=== PATIENT | female | born 1955 | race Caucasian/White ===

== ENCOUNTER 2017-01-05 12:10 | Emergency (ER) | payer BC ==
[~2017-01-05] VITALS: Ht 172.7 cm; Wt 78.1 kg
[2017-01-05 12:11] VITALS: Ht 172.7 cm; Wt 78.1 kg
--- OUTSIDE RECORDS SUMMARY | 2017-01-05 12:14 | XMS REPORT | Continuity of Care Document ---
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 Visit Date/Time Discharge Status Pt. Type Provider Facility Loc./Unit Complaint [id number] 01/21/2013 13:02:00 2012 19:35:00 DIS Outpatient Joleen Irene MD [facility] [place]
--- NOTE | 2017-01-05 12:40 | ERPDOC ---
Departure Disposition Decision Date: January 05, 2017 Disposition Decision Time: 15:16 Disposition: 01 DISCHARGED HOME, SELF-CARE Impression Impression Impression: Primary Impression: Chest pain Chest pain type: unspecified Qualified Codes: R07.9 - Chest pain, unspecified Severity: Moderate Condition: Stable Seen By: Mid-level only Referrals: DARIUSZ TOSCANO DO (Family) Patient Instructions: Chest Pain (ED) Problems/Meds/Labs Reviewed?: Yes Medications reviewed and manag: Yes Additional Instructions: Your labs today and chest xray are all normal. I do want you to go ahead and follow up with your primary care provider for reevaluation. If this persists you may need to have a cardiac stress test done. Return to Er for reevaluation if you should have return of chest pain, shortness of breath, or any new issues/ concerns. Follow up care ordered?: Yes Mental Status: Alert HPI - Chest Pain General Chief Complaint: Chest Pain Stated Complaint: CHEST PAIN Time Seen by Provider: 12:20 Source: patient Exam Limitations: no limitations HPI - Chest Pain Initial Comments She was sitting at work today and had sudden onset of intense heavy pain in the lower portion of her chest. She felt like this radiated up a little higher in her chest as well. She does not have any kind of cardiac history or family history of heart disease. Has never had pain like this before. She did not take any medications at the onset or for the duration of the pain. She got up and notified a coworker. She then started to feel faint and a little jittery. She has a history of syncope easily so this did not concern her as much. They did drive to [facility] but they do not have an ER and had offered to see about admitting her. She did decline this. Went to Immediate care but they do not do a work up for chest pain so they sent her here to ER. She states that the pain started to decrease after she showed up at [facility] and is totally gone now. Occurred At: home Onset/Timing: Rapid Duration: 1-3 hrs (at 1045-2 hours ago) Activities at Onset/Context: none Location: epigastric, see diagram 1 - area of pain Quality: other ("heavy pain") Associated Symptoms: syncope (felt presyncopal), DENIES: abdominal pain, back pain, diaphoresis, dizziness, edema, fast HR, fatigue, fever/chills, headache, heartburn, irregular HR, nausea/vomiting, rash, shortness of breath, slow HR, swelling/lump in chest, weakness Chest Pain Radiation: other (up further into her chest) Nitro Today/Relief: no nitro taken today Aspirin Treatment Today: unknown Prior Chest Pain/Cardiac Christen: no prior chest pain, no prior cardiac workup Hx of Similar Symptoms: No Allergies: Coded Allergies: Penicillins (Verified Allergy, Unknown, 01/05/17) Past History Patient Surgical History C Section Lumpectomy Past Medical History Metabolic: cancer Surgical History Reproductive/: Family History Family History: Negative Social History Smoking Status: Former smoker (quit in 1986) Substance Use Type: does not use Alcohol Intake: none Review of Systems Constitutional Constitutional: DENIES: chills, dizziness, fatigue, fever, weakness Eyes Vision: DENIES: blurring, double vision ENMT Ears: DENIES: drainage, pain Sinuses: DENIES: congestion, rhinorrhea Mouth/Throat: DENIES: scratchy throat, sore throat Cardiovascular Cardiac: chest pain, DENIES: dyspnea on exertion Rhythm/Rate: DENIES: irregular beat, palpitations Vascular: DENIES: pedal edema, unilateral swelling Pulmonary Respiratory: DENIES: cough, dyspnea, sputum, tachypnea GI Upper Abdomen: DENIES: nausea, pain, vomiting Lower Abdomen: DENIES: constipation, diarrhea, pain Integumentary Skin: DENIES: rash Neurological General: DENIES: headache, numbness, tingling, weakness Physical Exam General General Nourishment: well nourished, well developed, appears stated age, no acute distress, adult General Body Habitus: well groomed Vitals and Pain First Documented Vital Signs Date Time Temp Pulse Resp B/P Pulse Ox O2 Delivery O2 Flow Rate FiO2 01/05/17 12:11 98.1 66 16 155/72 97 Room Air Weight: Kilograms: 78.100 Height (feet): 5 Height (inches): 8.00 Triage Pain Scale: RN VS reviewed by Provider: Yes Normal Exams: ENMT: No facial trauma, nasal exudates, pharyngeal erythema, or exudates are noted Neck: Full range of motion, without adenopathy, JVD, bruits or thyromegaly Chest/Resp: Clear all locke, with good airflow, and symmetry bilaterally CV: Regular rate and rhythm, without murmur or gallop, Pulses 2+ all extremities, capillary refill, <2 seconds all ext., no pedal edema noted Abdomen: Bowel sounds positive, soft, non-tender, non-distended, no hepatosplenomegaly, masses or bruits noted Lymphatic: No lymphadenopathy, or lymphedema noted Integumentary: No rashes, hives, or bruising noted Neurologic: Patient is alert, and oriented, cranial nerves, motor/sensory/ cerebellar, exams w/o gross deficits, to observation Psychiatric: Patient exhibits, appropriate attention, emotion and affect Differential Diagnoses Considering: Acute IA, Anxiety/Panic, Angina, Costochondritis, Esophageal Spasm , GERD, Muscle Spasm Progress Results/Orders Orders Procedure Category Date Status Time Cbc W/Auto LAB 01/05/17 Complete Diff-Reflex Manual 12:33 Bmp - Basic Metabolic LAB 01/05/17 Complete Panel 12:33 Troponin I W LAB 01/05/17 Complete Hemolysis Index 12:33 EKG EKG 01/05/17 Taken 12:33 Chest 1 View RAD 01/05/17 Resulted 12:33 Iv Lock (Ed Only) EDM 01/05/17 Transmitted 12:33 Aspirin (Asa) PHA 01/05/17 Complete 12:45 Troponin I W LAB 01/05/17 Complete Hemolysis Index Lab Results Laboratory Tests Test 01/05/17 12:22 01/05/17 14:47 White Blood Count 4.3T/MM3 Red Blood Count 4.47M/MM3 Hemoglobin 13.8GM/DL Hematocrit 40.6% Mean Corpuscular Volume 90.8UM3 Mean Corpuscular Hemoglobin 30.9UUG Mean Corpuscular Hemoglobin Concent 34.0GM/DL RDW Standard Deviation 43.2FL Platelet Count 157T/MM3 Mean Platelet Volume 10.4UM3 Immature Granulocyte % (Auto) 0.2% Neutrophils (%) (Auto) 63.9% Lymphocytes (%) (Auto) 23.9% Monocytes (%) (Auto) 7.9% Eosinophils (%) (Auto) 3.9% Basophils (%) (Auto) 0.2% Absolute Immature Granulocyte (auto 0.01T/MM3 Absolute Neutrophils (auto) 2.8T/MM3 Absolute Lymphocytes (auto) 1.0T/MM3 Absolute Monocytes (auto) 0.3T/MM3 Absolute Eosinophils (auto) 0.2T/MM3 Absolute Basophils (auto) 0.0T/MM3 Turbidity < 20 Sodium Level 146MEQ/L Potassium Level 3.9MEQ/L Chloride Level 108MEQ/L Carbon Dioxide Level 26MEQ/L Anion Gap 12MEQ/L Blood Urea Nitrogen 13.0MG/DL Creatinine 0.7MG/DL Glomerular Filtration Rate Calc 85 BUN/Creatinine Ratio 19RATIO Glucose Level 99MG/DL Calculated Osmolality 281MOSM/KG Calcium Level 9.8MG/DL Icterus Index < 2 Troponin I < 0.012ng/ml < 0.012ng/ml Chemistry Specimen Hemolysis < 15 40 Medications Current ED Medications Aspirin (ASA) 324 mg O ONCE PO Last administered on 01/05/17t 12:40; Start 01/05 at 12:45; Stop 01/05/17 at 12:46; Status DC Progress Progress CBC, BMP, and troponin today are normal. Chest xray is clear. EKG shows NSR today. She has remained pain free while in ER. Will get repeat troponin and if negative then will send home. Her HEART score is only 1 today and this is very low risk. 1447- Repeat troponin today is negative. Will go ahead and let her go home today. She continues to be pain free in ER. Will have her follow up with her PCP or return to ER for reevaluation if return of symptoms. Xray Xray : Reason for Exam: Chest Pain Xray: CXR PA/Lat Interpretation: Normal MIREYA PATEL APRN January 05, 2017 12:40
[2017-01-05 12:42] LABS: BASOPHILS % (AUTO) 0.2 % (0-2); EOSINOPHILS # (AUTO) 0.2 T/MM3 (0-0.5); EOSINOPHILS % (AUTO) 3.9 % (0-4); HCT - HEMATOCRIT 40.6 % (36-46); HGB - HEMOGLOBIN 13.8 GM/DL (12-16); IMMATURE GRANULOCYTE # (AUTO) 0.01 T/MM3 (0.00-0.03); IMMATURE GRANULOCYTE % (AUTO) 0.2 % (0.0-0.5); LYMPHOCYTES % (AUTO) 23.9 % (23-45); MEAN CORPUSCULAR HGB 30.9 UUG (26-34); MEAN CORPUSCULAR VOLUME 90.8 UM3 (80-100); MEAN PLATELET VOLUME 10.4 UM3 (9.4-12.4); MONOCYTES # (AUTO) 0.3 T/MM3 (0-0.8); MONOCYTES % (AUTO) 7.9 % (0-9.0); NEUTROPHILS #(AUTO)-ABSOLUTE 2.8 T/MM3 (1.8-7.7); NEUTROPHILS % (AUTO) 63.9 % (33-66); RED BLOOD COUNT 4.47 M/MM3 (4.00-5.20); WBC - WHITE BLOOD COUNT 4.3 T/MM3 (4.5-11.0)
[2017-01-05] MEDS ORDERED: ASPIRIN 81 MG CHEWABLE TABLET PO ONE (12:45)
[2017-01-05 12:48] LABS: ANION GAP 12 MEQ/L (5-15); BUN/CREATININE RATIO 19 RATIO (6-26); CALCIUM 9.8 MG/DL (8.4-10.2); CHLORIDE 108 MEQ/L (98-107); CO2 - CARBON DIOXIDE 26 MEQ/L (22-30); CREATININE 0.7 MG/DL (0.7-1.2); GLOMERULAR FILTRATION RATE 85; GLUCOSE 99 MG/DL (65-110); POTASSIUM 3.9 MEQ/L (3.6-5); SODIUM 146 MEQ/L (134-144)
--- OUTSIDE RECORDS SUMMARY | 2017-01-05 12:54 | XMS REPORT | Continuity of Care Document ---
Author Author [facility] Organization [facility] Address Unknown Phone Unavailable Allergies Medications Problems [...] Status Pt. Type Provider Facility Loc./Unit Complaint [id number] 01/21/2013 13:02:00 2012 19:35:00 DIS Outpatient Joleen Irene MD [facility] [place]
--- NOTE | 2017-01-05 13:37 | DI ---
Indication: ITS.REASON: Centralized chest pain for two hours PROCEDURE: CHEST 1 VIEW: Encounter: Initial Comparison: May 13, 2014 FINDINGS: The lungs are clear. There is no abnormal airspace opacity, pleural effusion or pneumothorax identified. The heart size, pulmonary vasculature and mediastinum are within normal limits. No significant skeletal abnormality is seen. IMPRESSION: No acute cardiopulmonary abnormality. .
[2017-01-05] MEDS ORDERED: ANAS1TAB8 PO (13:39)
[2017-01-05] MEDS ORDERED: CHOL200026 PO (13:39)
[2017-01-05] MEDS ORDERED: ZINC50TA4 PO (13:39)
[2017-01-05] MEDS ORDERED: ASCO10007 (13:39)
[2017-01-05] MEDS ORDERED: RANI150T7 PO (13:39)
--- NOTE | 2017-01-05 14:11 | NUR ---
STATUS WARM BLANKET PROVIDED TO PT
--- NOTE | 2017-01-05 14:22 | NUR ---
STATUS PT IN ROOM ON CART DENEIS FURTHER NEEDS. DISCUSSED THE LAB TROPONIN BEING DRAWN. VOICES UNDERSTANDING AND DENIES FURTHER QUESTIONS
--- NOTE | 2017-01-05 14:26 | NUR ---
STATUS PT UP TO BATH ROOM WITH MINIMAL ASSIST.
--- NOTE | 2017-01-05 14:34 | NUR ---
STATUS TV REMOTE PROVIDED TO PT AND COFFEE AQUIRED FOR VISITOR IN PTS ROOM.
[2017-01-05 16:37] VITALS: BP 148/74; PULSE 61; RESP 21; TEMP 98.1; O2SAT 97
== END 2017-01-05 13:45 | disposition home or self-care (01) ==
LOC: ED 12:10
DX: R07.9 Chest pain, unspecified (principal); R55 Syncope and collapse
CPT/HCPCS: 36415; 80048; 84484; 85025; 93005

== ENCOUNTER 2017-01-25 05:59 | Day surgery (SDC) | payer BC ==
[2017-01-25] VITALS (17 sets, daily range): BP systolic 90–159; BP diastolic 58–82; PULSE 61–72; RESP 15–20; TEMP 97.6–98; O2SAT 97–100; Ht 170.2 cm; Wt 77.0 kg
[~2017-01-25] VITALS: Ht 170.2 cm; Wt 77.0 kg
[~2017-01-25 05:59] MED LIST: ANAS1TAB8 PO; ASCO10007; CHOL200026 PO; RANI150T7 PO; ZINC50TA4 PO
--- OUTSIDE RECORDS SUMMARY | 2017-01-25 06:03 | XMS REPORT | Continuity of Care Document ---
Author Author [facility] Organization [facility] Address Unknown Phone Unavailable Support Name Relationship Address Phone LAURA PATEL MD Caregiver [address] [place] [address] Unavailable DARIUSZ TOSCANO DO Caregiver [address] [address] Unavailable LIBBY COLON Next Of Kin [address] [place] [address] Insurance Providers Guarantor Mynor Colon Address [address] [place] [address] Email [email or web address] [facility] Policy Number [id number] Subscriber's Name Mynor Colon Relationship 18 Self Group Number [id number] Advance Directives Directive Response Recorded Date/Time Advanced Directives Type Living Will DPOA for Healthcare 01/05/17 12:11pm Chief Complaint and Reason for Visit Chief Complaint Chest Pain Reason for Visit Chest pain Problems Past Problems Medical Problem Onset Date Chest pain Unknown Medications Current Home Medications Medication Dose Units Route Directions Days Qty Instructions Start Date Anastrozole 1 Mg Tablet 1 Mg Oral Daily 90 01/05/17 Ascorbic Acid (Vitamin C) 1,000 Mg Tablet 01/05/17 Cholecalciferol (Vitamin D3) (Vitamin D-3) 2,000 Unit Capsule 2,000 Unit Oral Daily 01/05/17 Ranitidine Hcl 150 Mg Tablet 150 Mg Oral Daily 30 01/05/17 Zinc Gluconate (Zinc) 50 Mg Tablet 50 Mg Oral Daily 01/05/17 Social History Query Response Start Date Stop Date Smoking Status Never smoker Hospital Discharge Instructions No hospital discharge instructions. Plan of Care Discharge Date 01/05/17 1:45pm Disposition 01 DISCHARGED HOME, SELF-CARE Condition at Discharge Stable Instructions/Education Provided Chest Pain (ED) Prescriptions See Medication Section Referrals DARIUSZ TOSCANO DO Address: [address] [place] [phone] Additional Instructions/Education Your labs today and chest xray are all normal. I do want you to go ahead and follow up with your primary care provider for reevaluation. If this persists you may need to have a cardiac stress test done. Return to Er for reevaluation if you should have return of chest pain, shortness of breath, or any new issues/concerns. Care Plan and Goals Physician Care Plan Problem:Chest Pain Goal: Follow up with primary care provider Instructions: Take medications and follow care plan as discussed/written Functional Status No functional status results. Allergies, Adverse Reactions, Alerts Allergen Type Severity Reaction Status Last Updated Penicillin Allergy Unknown Active 01/05/17 Immunizations No immunization records. Vital Signs Acute Vital Signs Vital Response Date/Time Temperature (Fahrenheit) 98.1 deg F (96.8 - 99.1) 01/05/2017 4:37pm Temperature (Calculated Celsius) 36.50260 degrees C (36.0 - 37.3) 01/05/2017 4:37pm Pulse Rate (adult) 61 bpm (60 - 100) 01/05/2017 4:37pm Respiratory Rate 21 breaths/min (10 - 20) 01/05/2017 4:37pm O2 Sat by Pulse Oximetry 97 % (90 - 100) 01/05/2017 4:37pm Blood Pressure 148/74 mm Hg 01/05/2017 4:37pm Height (Feet) 5 feet 01/05/2017 12:11pm Height (Inches) 8.00 inches 01/05/2017 12:11pm Weight (Kilograms) 78.100 kg 01/05/2017 12:11pm Body Mass Index (BMI) 26.0 01/05/2017 12:11pm Results Laboratory Results Test Name Result Units Flags Reference Collection Date/Time Result Date/ Time Comments White Blood Count 4.3 T/MM3 L 4.5-11.0 01/05/2017 12:22pm 01/05/2017 12: 42pm Red Blood Count 4.47 M/MM3 4.00-5.20 01/05/2017 12:22pm 01/05/2017 12: 42pm Hemoglobin 13.8 GM/DL 12-16 01/05/2017 12:22pm 01/05/2017 12:42pm Hematocrit 40.6 % 36-46 01/05/2017 12:22pm 01/05/2017 12:42pm Mean Corpuscular Volume 90.8 UM3 80-100 01/05/2017 12:01/05/2017 12:42pm Mean Corpuscular Hemoglobin 30.9 UUG 26-34 01/05/2017 12:2016 12:42pm Mean Corpuscular Hemoglobin Concent 34.0 GM/DL 31-37 01/05/2017 12:01/05/2017 12:42pm RDW Standard Deviation 43.2 FL 36.9-50.2 01/05/2017 12:01/05/2017 12:42pm Platelet Count 157 T/MM3 130-400 01/05/2017 12:01/05/2017 12:42pm Mean Platelet Volume 10.4 UM3 9.4-12.4 01/05/2017 12:01/05/2017 12 :42pm Neutrophils (%) (Auto) 63.9 % 33-66 01/05/2017 12:01/05/2017 12: 42pm Lymphocytes (%) (Auto) 23.9 % 23-45 01/05/2017 12:01/05/2017 12: 42pm Monocytes (%) (Auto) 7.9 % 0-9.0 01/05/2017 12:01/05/2017 12:42pm Eosinophils (%) (Auto) 3.9 % 0-4 01/05/2017 12:01/05/2017 12:42pm Basophils (%) (Auto) 0.2 % 0-2 01/05/2017 12:01/05/2017 12:42pm Immature Granulocyte % (Auto) 0.2 % 0.0-0.5 01/05/2017 12:2016 12:42pm Absolute Neutrophils (auto) 2.8 T/MM3 1.8-7.7 01/05/2017 12:2016 12:42pm Absolute Lymphocytes (auto) 1.0 T/MM3 1-4.8 01/05/2017 12:2016 12:42pm Absolute Monocytes (auto) 0.3 T/MM3 0-0.8 01/05/2017 12:2016 12:42pm Absolute Eosinophils (auto) 0.2 T/MM3 0-0.5 01/05/2017 12:2016 12:42pm Absolute Basophils (auto) 0.0 T/MM3 0-0.2 01/05/2017 12:pm 2016 12:42pm Absolute Immature Granulocyte (auto 0.01 T/MM3 0.00-0.03 01/05/2017 12: 01/05/2017 12:42pm Icterus Index < 2 0-7 01/05/2017 12:01/05/2017 12:48pm Chemistry Specimen Hemolysis 40 H 0-25 01/05/2017 2:47pm 01/05/2017 3: 12pm 26-70: Specimen Exhibited Slight Hemolysis - can falsely elevate K (Potassium) and Urine Protein. Turbidity < 20 0-20 01/05/2017 12:pm 01/05/2017 12:48pm Sodium Level 146 MEQ/L H 134-144 01/05/2017 12:22pm 01/05/2017 12:48pm Potassium Level 3.9 MEQ/L 3.6-5 01/05/2017 12:01/05/2017 12:48pm Chloride Level 108 MEQ/L H 98-107 01/05/2017 12:pm 01/05/2017 12:48pm Carbon Dioxide Level 26 MEQ/L 22-30 01/05/2017 12:01/05/2017 12: 48pm Anion Gap 12 MEQ/L 5-15 01/05/2017 12:pm 01/05/2017 12:48pm Blood Urea Nitrogen 13.0 MG/DL 7-17 01/05/2017 12:01/05/2017 12: 48pm Creatinine 0.7 MG/DL 0.7-1.2 01/05/2017 12:01/05/2017 12:48pm BUN/Creatinine Ratio 19 RATIO 6-26 01/05/2017 12:01/05/2017 12: 48pm Glomerular Filtration Rate Calc 85 01/05/2017 12:01/05/2017 12 :48pm Glucose Level 99 MG/DL 65-110 01/05/2017 12:pm 01/05/2017 12:48pm Calculated Osmolality 281 MOSM/KG H 261-280 01/05/2017 12:2016 12:48pm Calcium Level 9.8 MG/DL 8.4-10.2 01/05/2017 12:22pm 01/05/2017 12:48pm Troponin I < 0.012 ng/ml 0-0.12 01/05/2017 2:47pm 01/05/2017 3:12pm Troponin values with a difference of 55% increase from orginal troponin value represent a true biological DELTA value. (%increase Calc=Orginal Troponin value, divided by subsequent Troponin value, multiplied by 100) Name: MYNOR COLON Unit #: [id number] : 1955 Sex: F Admit Date: Loc / Svc: ED Discharge Date: DIAGNOSTIC IMAGING REPORT [id number]: ITS.REASON: Centralized chest pain for two hours PROCEDURE: CHEST 1 VIEW: Encounter: Initial Comparison: May 13, 2014 FINDINGS: The lungs are clear. There is no abnormal airspace opacity, pleural effusion or pneumothorax identified. The heart size, pulmonary vasculature and mediastinum are within normal limits. No significant skeletal abnormality is seen. IMPRESSION: No acute cardiopulmonary abnormality. . Procedures No known history of procedures. Encounters Encounter Location Arrival/Admit Date Discharge/Depart Date Attending Provider Departed Emergency Room [facility] 01/05/17 12:10pm 01/05/17 1: 45pm LAURA PATEL MD Recent Diagnosis
--- OUTSIDE RECORDS SUMMARY | 2017-01-25 06:03 | XMS REPORT | Continuity of Care Document ---
Author Author [facility] Organization [facility] Address Unknown Phone Unavailable Allergies Medications Problems [...] Status Pt. Type Provider Facility Loc./Unit Complaint [id number] 01/21/2013 13:02:00 2012 19:35:00 DIS Outpatient Joleen Irene MD [facility] [place]
[2017-01-25] MEDS ORDERED: MIDAZOLAM 5mg/5ml INJECTION ONE ×2 (06:39→07:24)
[2017-01-25] MEDS ORDERED: FENTANYL 100mcg/2ml INJECTION ONE (06:39)
[2017-01-25] MEDS ORDERED: SALINE FLUSH 10ml SYRINGE ONE (06:40)
[2017-01-25] MEDS ORDERED: LIDOCAINE 1% (10mg/ml) 2ml SDV INJ ONE (07:00)
[2017-01-25] MEDS ORDERED: LR 1,000 ML IV SCH (07:00)
[2017-01-25] MEDS ORDERED: FENTANYL 100mcg/2ml INJECTION IV PRN (07:09)
[2017-01-25] MEDS ORDERED: MIDAZOLAM 5mg/5ml INJECTION IV PRN (07:09)
[2017-01-25] MEDS ORDERED: DiphenhydrAMINE 50 MG/ML INJECTION ONE (07:38)
[2017-01-25] MEDS ORDERED: DiphenhydrAMINE 50 MG/ML INJECTION IV ONE (07:39)
[2017-01-25] MEDS ORDERED: MIDAZOLAM 2mg/2ml INJECTION ONE (07:40)
--- NOTE | 2017-01-25 13:50 | OPNOTEF ---
DATE OF OPERATION 01/25/2017 INDICATION Colorectal cancer screening. OPERATION Colonoscopy SURGEON Cirilo Coombs D.O. ASA CLASSIFICATION I Consent signed and on the chart. Routine monitoring with ECG, continuous oximetry and noninvasive blood pressure was performed throughout the procedure and found to be within normal limits. IV sedation was performed with 10 mg of Versed and 100 mcg of Fentanyl. She was also given 50 mg of Benadryl. Prior to the procedure, the patient was brought to the endoscopy lab where a brief review of her medical history and physical exam was performed. The procedure was described to her and she was agreeable to continue. All questions were answered. DESCRIPTION OF OPERATION She was given IV sedation and placed in the left lateral decubitus position. A digital rectal exam was normal. The colonoscope was introduced through the anal verge and advanced to the cecum. Upon reaching the cecum, careful inspection of mucosa was performed. From the cecum through the ascending, transverse, descending, sigmoid colon and rectum, and there were no polyps, masses, lesions or diverticula. She tolerated the procedure well. There were no complications. IMPRESSION Normal colon. RECOMMENDATIONS Repeat in 10 years consistent with current colon cancer screening guidelines. MTDD
== END 2017-01-25 09:07 | disposition home or self-care (01) ==
LOC: NSC 05:59
PROVIDERS: ATTEND Internal Medicine
DX: Z12.11 Encounter for screening for malignant neoplasm of colon (principal); K21.9 Gastro-esophageal reflux disease without esophagitis; C7A.1 Malignant poorly differentiated neuroendocrine tumors
CPT/HCPCS: 45378; J1200; J2250; J3010; J7120